=== PATIENT | female | born 1980 | race Caucasian/White ===

== ENCOUNTER → 2016-09-14 | Outpatient (CLI) | payer BC ==
[~2016-09-14] MED LIST: IOPAMIDOL (ISOVUE 370) 100 ML BTL IV ONE
== END ==
LOC: FIMAGING 12:37
PROVIDERS: ATTEND Midwife
DX: N97.9 Female infertility, unspecified (principal); R93.8 Abnormal findings on diagnostic imaging of other specified body structures
CPT/HCPCS: Q9967

== ENCOUNTER → 2016-09-20 | Outpatient (CLI) | payer BC | LOC: BMCIMAGING 09:02 | PROVIDERS: ATTEND Midwife | DX: R93.8 Abnormal findings on diagnostic imaging of other specified body structures (principal); D25.2 Subserosal leiomyoma of uterus; N83.202 Unspecified ovarian cyst, left side ==